=== PATIENT | female | born 1955 | race Caucasian/White ===

== ENCOUNTER 2018-03-11 19:16 | Observation (INO) | payer OTHER ==
[2018-03-11] MEDS ORDERED: Albuterol/Ipratropium 3.0-0.5 MG/3 ML Neb Soln NEB ONE (19:32)
[2018-03-11 20:08] LABS: CHLORIDE,CL 103 mmol/L (101-111); SODIUM,NA 138 mmol/L (135-145)
--- NOTE | 2018-03-11 21:23 | EDM.PDOC ---
ED HPI GENERAL MEDICAL PROBLEM - General Chief Complaint: Respiratory Problem Stated Complaint: SICK [id number] Time Seen by Provider: 03/11/18 19:40 Source of Information: Reports: Patient History Limitations: Reports: No Limitations - History of Present Illness INITIAL COMMENTS - FREE TEXT/NARRATIVE: ED with c/o of severe cough since december. Has had two courses of antibiotics and steroids, last finished steroids on Tuesday. Some improvement initially with steroids. Cough more productive that prior, yellow phlegm, Coughing to point of throwing up. This afternoon, coughing episode, , shortly after, dizzy and past out, emesis when came to, felt slightly better, laid down for nap and slept few hours then family suggested to go to ED. Pain across back with coughing. Pressure at times in ears with coughing. Original onset of sx primarily cough, no fever ore chill. No travel at onset. Recent travel to [place] but sx present and on second steroid course prior to travel. Relays hx of 2nd hand smoke for 32 years then period not being around it. Since November is again exposed . Upper Back Pain Score (Numeric/FACES): 6 - Related Data Allergies Allergy/AdvReac Type Severity Reaction Status Date / Time No Known Allergies Allergy Verified 03/11/18 19:33 Home Meds: Home Meds DULoxetine [Cymbalta] 60 mg PO DAILY 06/07/15 [History] Albuterol [Proventil HFA] 2 inhalation INH BID 03/11/18 [History] Calcium Citrate/Vitamin D3 [Calcium Citrate - Vit D3 Tab] 1 tab PO DAILY [History] Cetirizine HCl [Zyrtec] 10 mg PO DAILY 03/11/18 [History] Cyanocobalamin (Vitamin B-12) [Vitamin B-12] 500 mcg PO DAILY 03/11/18 [History] Dextromethorphan/guaiFENesin [Mucinex DM ER 600-30 MG] 1 tab PO BID 03/11/18 [ History] Ferrous Sulfate [High Potency Iron] 65 mg PO DAILY 03/11/18 [History] Magnesium 500 mg PO DAILY 03/11/18 [History] Multivitamin [Multivitamins] 1 cap PO DAILY 03/11/18 [History] Non-Formulary Medication [NF Drug] 1 tsp PO DAILY 03/11/18 [History] guaiFENesin/Dextromethorphan [Delsym Cough+Chest Cngst Dm Lq] 10 ml PO BID 03/11 [History] Past Medical History Other Gastrointestinal History: gastric bypass Other Genitourinary History: bladder repair Musculoskeletal History: Reports: Osteoarthritis Other Musculoskeletal History: OA in knees, hip, hands Social & Family History - Tobacco Use Smoking Status *Q: Never Smoker Second Hand Smoke Exposure: Yes - Recreational Drug Use Recreational Drug Use: No ED ROS GENERAL - Review of Systems Review Of Systems: See Below Constitutional: Reports: Malaise HEENT: Reports: No Symptoms Respiratory: Reports: Shortness of Breath, Wheezing, Cough, Sputum Cardiovascular: Reports: No Symptoms GI/Abdominal: Reports: Vomiting (with coughing) Musculoskeletal: Reports: Muscle Pain (across back from cough) Skin: Reports: No Symptoms Neurological: Reports: Syncope ED EXAM, GENERAL - Physical Exam Exam: See Below Exam Limited By: No Limitations General Appearance: Alert, Moderate Distress Eye Exam: Bilateral Eye: EOMI, PERRL Ears: Normal External Exam Nose: Normal Inspection Throat/Mouth: Normal Inspection Head: Atraumatic, Normocephalic Respiratory/Chest: No Respiratory Distress, Rales (bases), Wheezing, Other ( harsh loose bronchial cough) Cardiovascular: Normal Peripheral Pulses, Regular Rate, Rhythm GI/Abdominal: Normal Bowel Sounds, Soft Back Exam: Normal Inspection Extremities: Normal Inspection, Normal Range of Motion. No: Pedal Edema Neurological: Alert, Oriented, Normal Cognition Psychiatric: Normal Affect, Normal Mood Skin Exam: Warm, Dry, Intact, Normal Color Course - Vital Signs Last Recorded V/S: Last Vital Signs Temp 98.2 F 03/12/18 01:26 Pulse 76 03/12/18 01:26 Resp 18 03/12/18 01:26 BP 113/63 03/12/18 01:26 Pulse Ox 93 L 03/12/18 01:26 - Orders/Labs/Meds Orders: Active Orders 24 hr Category Date Time Status RT Aerosol Therapy [RC] ASDIRECTED Care 03/11/18 19:33 Active CULTURE BLOOD [BC] Stat Lab 03/11/18 19:40 Results CULTURE BLOOD [BC] Stat Lab 03/11/18 21:50 Results Blood Culture x2 Reflex Set [OM.PC] Stat Oth 03/11/18 21:43 Ordered Medication Orders Albuterol (Proventil Neb Soln) 2.5 mg NEB Q2H PRN PRN Reason: shortness of breath/wheezing Albuterol/Ipratropium (Duoneb 3.0-0.5 Mg/3 Ml) 3 ml NEB Q6HRRT [facility] Last Admin: 03/12/18 01:21 Dose: 3 ml Calcium Carbonate (Calcium Carbonate/Vitamin D 1250 Mg-200 Unit) 1 tab PO DAILY [facility] Last Admin: 03/12/18 01:16 Dose: 1 tab Cyanocobalamin (Vitamin B12) 500 mcg PO DAILY [facility] Duloxetine HCl (Cymbalta) 60 mg PO DAILY [facility] Enoxaparin Sodium (Lovenox) 40 mg SUBCUT DAILY [facility] Ferrous Sulfate (Ferrous Sulfate) 325 mg PO DAILY [facility] Guaifenesin/Phenylephrine HCl (Robitussin Dm) 10 ml PO QID PRN PRN Reason: Cough Sodium Chloride (Normal Saline) 1,000 mls @ 125 mls/hr IV ASDIRECTED [facility] Last Admin: 03/12/18 01:17 Dose: 125 mls/hr Magnesium Oxide (Magnesium Oxide) 500 mg PO DAILY [facility] Multivitamins (Thera) 1 each PO DAILY [facility] Non-Formulary Medication (Dextromethorphan/Guaifenesin [Mucinex Dm Er 600-30 Mg] ) 1 tab PO BID [facility] Sodium Chloride (Saline Flush) 10 ml FLUSH ASDIRECTED PRN PRN Reason: Keep Vein Open Labs: Laboratory Tests 03/11/18 03/11/18 03/11/18 Range/Units 19:40 19:40 19:40 WBC 13.8 H (5.0-10.0) 10^3/uL RBC 4.65 (4.2-5.4) 10^6/uL Hgb 14.7 (12.0-16.0) g/dL Hct 44.1 (37.0-47.0) % MCV 94.8 (80-100) fL MCH 31.6 (27.0-34.0) pg MCHC 33.3 (33.0-35.0) g/dL Plt Count 264 (150-450) 10^3/uL Neut % (Auto) 74.1 (42.2-75.2) % Lymph % (Auto) 13.7 L (20.5-50.1) % [place] % (Auto) 11.1 H (2-8) % Eos % (Auto) 0.8 L (1.0-3.0) % Baso % (Auto) 0.3 (0.0-1.0) % PT (9.0-12.0) SEC INR (0.9-1.2) D-Dimer, Quantitative (0-400) ng/mL Sodium 138 (135-145) mmol/L Potassium 3.6 (3.6-5.0) mmol/L Chloride 103 (101-111) mmol/L Carbon Dioxide 26.0 (21.0-31.0) mmol/L Anion Gap 12.6 BUN 11 (7-18) mg/dL Creatinine 0.9 (0.6-1.3) mg/dL Est Cr Clr Drug Dosing 58.32 mL/min Estimated GFR (MDRD) > 60 BUN/Creatinine Ratio 12.22 Glucose 76 (74-105) mg/dL Lactic Acid 1.3 (0.5-2.2) mmol/L Calcium 9.1 (8.4-10.2) mg/dl Total Bilirubin 0.5 (0.2-1.0) mg/dL AST 26 (10-42) IU/L ALT 23 (10-60) IU/L Alkaline Phosphatase 103 (42-121) IU/L Troponin I < 0.02 (0.00-0.02) ng/ml B-Natriuretic Peptide 12 (0-100) pg/ml Total Protein 7.7 (6.7-8.2) g/dl Albumin 4.2 (3.2-5.5) g/dl Globulin 3.5 Albumin/Globulin Ratio 1.20 /11/27 Range/Units 19:40 WBC (5.0-10.0) 10^3/uL RBC (4.2-5.4) 10^6/uL Hgb (12.0-16.0) g/dL Hct (37.0-47.0) % MCV (80-100) fL MCH (27.0-34.0) pg MCHC (33.0-35.0) g/dL Plt Count (150-450) 10^3/uL Neut % (Auto) (42.2-75.2) % Lymph % (Auto) (20.5-50.1) % [place] % (Auto) (2-8) % Eos % (Auto) (1.0-3.0) % Baso % (Auto) (0.0-1.0) % PT 9.0 (9.0-12.0) SEC INR 0.9 (0.9-1.2) D-Dimer, Quantitative 108 (0-400) ng/mL Sodium (135-145) mmol/L Potassium (3.6-5.0) mmol/L Chloride (101-111) mmol/L Carbon Dioxide (21.0-31.0) mmol/L Anion Gap BUN (7-18) mg/dL Creatinine (0.6-1.3) mg/dL Est Cr Clr Drug Dosing mL/min Estimated GFR (MDRD) BUN/Creatinine Ratio Glucose (74-105) mg/dL Lactic Acid (0.5-2.2) mmol/L Calcium (8.4-10.2) mg/dl Total Bilirubin (0.2-1.0) mg/dL AST (10-42) IU/L ALT (10-60) IU/L Alkaline Phosphatase (42-121) IU/L Troponin I (0.00-0.02) ng/ml B-Natriuretic Peptide (0-100) pg/ml Total Protein (6.7-8.2) g/dl Albumin (3.2-5.5) g/dl Globulin Albumin/Globulin Ratio Meds: Medications Generic Name Dose Route Start Last Admin Trade Name Freq PRN Reason Stop Dose Admin Albuterol 2.5 mg 03/12/18 00:13 Proventil Neb Soln NEB Q2H PRN shortness of breath/wheezing Albuterol/Ipratropium 3 ml 03/12/18 01:00 03/12/18 01:21 Duoneb 3.0-0.5 Mg/3 Ml NEB 3 ml Q6HRRT [facility] Administration Calcium Carbonate 1 tab 03/12/18 00:45 03/12/18 01:16 Calcium Carbonate/Vitamin D 1250 Mg-200 Unit PO 1 tab DAILY [facility] Administration Cyanocobalamin 500 mcg 03/12/18 09:00 Vitamin B12 PO DAILY [facility] Duloxetine HCl 60 mg 03/12/18 09:00 Cymbalta PO DAILY [facility] Enoxaparin Sodium 40 mg 03/12/18 09:00 Lovenox SUBCUT DAILY [facility] Ferrous Sulfate 325 mg 03/12/18 09:00 Ferrous Sulfate PO DAILY [facility] Guaifenesin/Phenylephrine HCl 10 ml 03/12/18 00:37 Robitussin Dm PO QID PRN Cough Sodium Chloride 1,000 mls @ 125 mls/hr 03/12/18 00:15 03/12/18 01:17 Normal Saline IV 125 mls/hr ASDIRECTED [facility] Administration Magnesium Oxide 500 mg 03/12/18 09:00 Magnesium Oxide PO DAILY [facility] Multivitamins 1 each 03/12/18 09:00 Thera PO DAILY [facility] Non-Formulary Medication 1 tab 03/12/18 09:00 Dextromethorphan/Guaifenesin [Mucinex Dm Er 600-30 Mg] PO BID [facility] Sodium Chloride 10 ml 03/12/18 00:13 Saline Flush FLUSH ASDIRECTED PRN Keep Vein Open Discontinued Medications Generic Name Dose Route Start Last Admin Trade Name Freq PRN Reason Stop Dose Admin Albuterol/Ipratropium 3 ml 03/11/18 19:32 03/11/18 19:38 Duoneb 3.0-0.5 Mg/3 Ml NEB 03/11/18 19:33 3 ml ONETIME ONE Administration Benzonatate 200 mg 03/11/18 21:43 03/11/18 22:04 Tessalon Perles PO 03/11/18 21:44 200 mg ONETIME ONE Administration Levofloxacin/Dextrose 500 mg/ 100 mls @ 100 mls/hr 03/11/18 21:43 03/11/18 22 :05 Premix IV 03/11/18 22:42 100 mls/hr ONETIME ONE Administration Iopamidol 100 ml 03/12/18 00:29 03/12/18 00:44 Isovue-370 (76%) IVPUSH 03/12/18 00:37 Not Given ONETIME ONE Iopamidol 75 ml 03/12/18 00:38 03/12/18 00:44 Isovue-300 (61%) IVPUSH 03/12/18 00:39 75 ml ONETIME ONE Administration Methylprednisolone Sodium Succinate 250 mg 03/11/18 21:43 03/12/18 00:45 Solu-Medrol IVPUSH 03/11/18 21:44 Not Given ONETIME ONE Methylprednisolone Sodium Succinate 125 mg 03/11/18 22:04 03/11/18 22:09 Solu-Medrol IVPUSH 03/11/18 22:05 125 mg ONETIME ONE Administration Potassium Chloride 40 meq 03/12/18 00:18 03/12/18 01:16 Klor-Con 10 PO 03/12/18 00:19 40 meq ONETIME ONE Administration - Radiology Interpretation Free Text/Narrative:: CXR early patchy infiltrates right greater than left - Re-Assessments/Exams Free Text/Narrative Re-Assessment/Exam: 03/11/18 22:00 Mild improvement post neb for brief period. Dr Eugenio MORTON, accepting of patient for further management. Departure - Departure Time of Disposition: 22:01 Disposition: Refer to Observation Condition: Good Clinical Impression: Pneumonia Qualifiers: Pneumonia type: due to unspecified organism Laterality: bilateral Lung location : lower lobe of lung Qualified Code(s): J18.1 - Lobar pneumonia, unspecified organism Syncopal episodes Qualifiers: Syncope type: unspecified Qualified Code(s): R55 - Syncope and collapse - Discharge Information - My Orders Last 24 Hours: My Active Orders 03/11/18 19:33 RT Aerosol Therapy [RC] ASDIRECTED 03/11/18 19:40 CULTURE BLOOD [BC] Stat 03/11/18 21:43 Blood Culture x2 Reflex Set [OM.PC] Stat 03/11/18 21:50 CULTURE BLOOD [BC] Stat - Assessment/Plan Last 24 Hours: My Active Orders 03/11/18 19:33 RT Aerosol Therapy [RC] ASDIRECTED 03/11/18 19:40 CULTURE BLOOD [BC] Stat 03/11/18 21:43 Blood Culture x2 Reflex Set [OM.PC] Stat 03/11/18 21:50 CULTURE BLOOD [BC] Stat
[2018-03-11] MEDS ORDERED: methylPREDNISolone Sodium Succinate 500 MG/4 ML SDV IVPUSH ONE (21:43)
[2018-03-11] MEDS ORDERED: Levofloxacin/Dextrose 5%-Water 500 MG in Premix Bag 1 BAG IV ONE (21:43)
[2018-03-11] MEDS ORDERED: Benzonatate 100 MG Cap PO ONE (21:43)
[2018-03-11] MEDS ORDERED: methylPREDNISolone Sodium Succinate 125 MG/2 ML SDV IVPUSH ONE (22:04)
[2018-03-12] MEDS ORDERED: Sodium Chloride 0.9% 10 ML Syringe FLUSH PRN (00:13)
[2018-03-12] MEDS ORDERED: Albuterol 0.083% 2.5 MG/3 ML Neb Soln NEB PRN (00:13)
[2018-03-12] MEDS ORDERED: Potassium Chloride 10 MEQ Tab.ER PO ONE (00:18)
--- NOTE | 2018-03-12 00:25 | PCM.HP ---
H&P History of Present Illness - General Date of Service: 03/12/18 Admit Problem/Dx: Admission Diagnosis/Problem Admission Diagnosis/Problem Chronic cough Source of Information: Patient History Limitations: Reports: No Limitations - History of Present Illness Initial Comments - Free Text/Narative: 63 yo F with PMH of anxiety disorder/depression, osteoarthritis, obesity s/p gastric bypass, who comes to the ED with cough and post-tussive syncope. Cough has been ongoing for 2 months. Cough is productive of yellowish sputum. There is no fever, no hemoptysis, no orthopnea, no PND, no chest pain, no palpitations. She was seen in the clinic in January and was given antibiotics. Cough continued after antibiotic treatment. She was then given steroid treatments and cough improved. In the ED, she received nebulizer treatments and this also improved her cough spell. She had an episode of post-tussive syncope today which prompted her to come to the ED. She has no recent history of travel outside the country, no history of working with [place] population or homeless people, no history of contact with persons with chronic cough, no history of exploring caves. SH: Does not have a history of smoking, but has had significant exposure to second hand smoke from her . Associated Symptoms: Reports: Cough Upper Back Pain Score (Numeric/FACES): 6 - Related Data Allergies/Adverse Reactions: Allergies Allergy/AdvReac Type Severity Reaction Status Date / Time No Known Allergies Allergy Verified 03/11/18 19:33 Home Medications: Home Meds DULoxetine [Cymbalta] 60 mg PO DAILY 06/07/15 [History] Albuterol [Proventil HFA] 2 inhalation INH BID 03/11/18 [History] Calcium Citrate/Vitamin D3 [Calcium Citrate - Vit D3 Tab] 1 tab PO DAILY [History] Cetirizine HCl [Zyrtec] 10 mg PO DAILY 03/11/18 [History] Cyanocobalamin (Vitamin B-12) [Vitamin B-12] 500 mcg PO DAILY 03/11/18 [History] Dextromethorphan/guaiFENesin [Mucinex DM ER 600-30 MG] 1 tab PO BID 03/11/18 [ History] Ferrous Sulfate [High Potency Iron] 65 mg PO DAILY 03/11/18 [History] Magnesium 500 mg PO DAILY 03/11/18 [History] Multivitamin [Multivitamins] 1 cap PO DAILY 03/11/18 [History] Non-Formulary Medication [NF Drug] 1 tsp PO DAILY 03/11/18 [History] guaiFENesin/Dextromethorphan [Delsym Cough+Chest Cngst Dm Lq] 10 ml PO BID 03/11 [History] Past Medical History HEENT History: Reports: Other (See Below) Other HEENT History: wear glasses for reading Respiratory History: Reports: Pneumonia, Recurrent Gastrointestinal History: Reports: Other (See Below) Other Gastrointestinal History: gastric bypass Other Genitourinary History: bladder repair [employer] History: Reports: Other OB/BYN History: x2 Musculoskeletal History: Reports: Osteoarthritis Other Musculoskeletal History: OA in knees, hip, hands - Infectious Disease History Infectious Disease History: Reports: Chicken Pox, Measles, Mumps - Past Surgical History GI Surgical History: Reports: Appendectomy, Cholecystectomy Female Surgical History: Reports: Hysterectomy, Other (See Below) Other Female Surgeries/Procedures: bladder repair in 1999 Social & Family History - Family History Respiratory: Reports: COPD Other Respiratory Family Hisory: mother Endocrine/Metabolic: Reports: Diabetes, type II Other Endocrine/Metabolic Family History: sisters - Tobacco Use Smoking Status *Q: Never Smoker Second Hand Smoke Exposure: Yes - Caffeine Use Caffeine Use: Reports: Coffee - Alcohol Use Days Per Week of Alcohol Use: 2 Number of Drinks Per Day: 1 Total Drinks Per Week: 2 - Recreational Drug Use Recreational Drug Use: No H&P Review of Systems - Review of Systems: Review Of Systems: See Below General: Denies: Fever, Chills, Weight Loss HEENT: Reports: No Symptoms Pulmonary: Reports: Cough, Sputum. Denies: Hemoptysis Cardiovascular: Reports: No Symptoms Gastrointestinal: Reports: No Symptoms Genitourinary: Reports: No Symptoms Musculoskeletal: Reports: No Symptoms Skin: Reports: No Symptoms Exam - Exam Exam: See Below - Vital Signs Vital Signs: Last Vital Signs Temp 37.1 C 03/11/18 21:56 Pulse 85 03/11/18 21:56 Resp 18 03/11/18 21:56 BP 123/68 03/11/18 21:56 Pulse Ox 98 03/11/18 21:56 Weight: 83.642 kg - Exam General: Alert, Oriented HEENT: Conjunctiva Clear Neck: Supple Lungs: Clear to Auscultation Cardiovascular: Regular Rate, Regular Rhythm GI/Abdominal Exam: Normal Bowel Sounds - Patient Data Lab Results Last 24 hrs: Laboratory Results - last 24 hr 03/11/18 03/11/18 03/11/18 Range/Units 19:40 19:40 19:40 WBC 13.8 H (5.0-10.0) 10^3/uL RBC 4.65 (4.2-5.4) 10^6/uL Hgb 14.7 (12.0-16.0) g/dL Hct 44.1 (37.0-47.0) % MCV 94.8 (80-100) fL MCH 31.6 (27.0-34.0) pg MCHC 33.3 (33.0-35.0) g/dL Plt Count 264 (150-450) 10^3/uL Neut % (Auto) 74.1 (42.2-75.2) % Lymph % (Auto) 13.7 L (20.5-50.1) % [place] % (Auto) 11.1 H (2-8) % Eos % (Auto) 0.8 L (1.0-3.0) % Baso % (Auto) 0.3 (0.0-1.0) % PT (9.0-12.0) SEC INR (0.9-1.2) D-Dimer, Quantitative (0-400) ng/mL Sodium 138 (135-145) mmol/L Potassium 3.6 (3.6-5.0) mmol/L Chloride 103 (101-111) mmol/L Carbon Dioxide 26.0 (21.0-31.0) mmol/L Anion Gap 12.6 BUN 11 (7-18) mg/dL Creatinine 0.9 (0.6-1.3) mg/dL Est Cr Clr Drug Dosing 58.32 mL/min Estimated GFR (MDRD) > 60 BUN/Creatinine Ratio 12.22 Glucose 76 (74-105) mg/dL Lactic Acid 1.3 (0.5-2.2) mmol/L Calcium 9.1 (8.4-10.2) mg/dl Total Bilirubin 0.5 (0.2-1.0) mg/dL AST 26 (10-42) IU/L ALT 23 (10-60) IU/L Alkaline Phosphatase 103 (42-121) IU/L Troponin I < 0.02 (0.00-0.02) ng/ml B-Natriuretic Peptide 12 (0-100) pg/ml Total Protein 7.7 (6.7-8.2) g/dl Albumin 4.2 (3.2-5.5) g/dl Globulin 3.5 Albumin/Globulin Ratio 1.20 03/11/18 Range/Units 19:40 WBC (5.0-10.0) 10^3/uL RBC (4.2-5.4) 10^6/uL Hgb (12.0-16.0) g/dL Hct (37.0-47.0) % MCV (80-100) fL MCH (27.0-34.0) pg MCHC (33.0-35.0) g/dL Plt Count (150-450) 10^3/uL Neut % (Auto) (42.2-75.2) % Lymph % (Auto) (20.5-50.1) % [place] % (Auto) (2-8) % Eos % (Auto) (1.0-3.0) % Baso % (Auto) (0.0-1.0) % PT 9.0 (9.0-12.0) SEC INR 0.9 (0.9-1.2) D-Dimer, Quantitative 108 (0-400) ng/mL Sodium (135-145) mmol/L Potassium (3.6-5.0) mmol/L Chloride (101-111) mmol/L Carbon Dioxide (21.0-31.0) mmol/L Anion Gap BUN (7-18) mg/dL Creatinine (0.6-1.3) mg/dL Est Cr Clr Drug Dosing mL/min Estimated GFR (MDRD) BUN/Creatinine Ratio Glucose (74-105) mg/dL Lactic Acid (0.5-2.2) mmol/L Calcium (8.4-10.2) mg/dl Total Bilirubin (0.2-1.0) mg/dL AST (10-42) IU/L ALT (10-60) IU/L Alkaline Phosphatase (42-121) IU/L Troponin I (0.00-0.02) ng/ml B-Natriuretic Peptide (0-100) pg/ml Total Protein (6.7-8.2) g/dl Albumin (3.2-5.5) g/dl Globulin Albumin/Globulin Ratio Result Diagrams: 03/11/18 19:40 03/11/18 19:40 Akshat Results Last 24 hrs: Microbiology 03/11/18 19:40 Anaerobic Blood Culture - Final Blood - Venous 03/11/18 21:50 Anaerobic Blood Culture - Final Blood - Venous - Lab Draw Problem List Initiated/Reviewed/Updated: Yes Orders Last 24hrs: Active Orders 24 hr Category Date Time Status Patient Status [ADT] Routine ADT 03/12/18 00:13 Active Ambulate [RC] ASDIRECTED Care 03/12/18 00:13 Active Oxygen Therapy [RC] PRN Care 03/12/18 00:13 Active Peripheral IV Care [RC] . DIRECTED Care 03/12/18 00:15 Active RT Aerosol Therapy [RC] ASDIRECTED Care 03/11/18 19:33 Active RT Aerosol Therapy [RC] ASDIRECTED Care 03/12/18 00:16 Active Up ad Jessie [RC] ASDIRECTED Care 03/12/18 00:13 Active VTE/DVT Education [RC] PER UNIT ROUTINE Care 03/12/18 00:13 Active Vital Signs [RC] Q4H Care 03/12/18 00:13 Active Regular Diet [DIET] Diet 03/12/18 Breakfast Active Chest w Cont [CT] Stat Exams 03/12/18 00:11 Ordered BASIC METABOLIC PANEL,BMP [CHEM] AM Lab 03/12/18 05:11 Ordered CBC WITH AUTO DIFF [HEME] AM Lab 03/12/18 05:11 Ordered CULTURE BLOOD [BC] Stat Lab 03/11/18 19:40 Results CULTURE BLOOD [BC] Stat Lab 03/11/18 21:50 Results Albuterol [Proventil Neb Soln] Med 03/12/18 00:13 Ordered 2.5 mg NEB Q2H PRN Albuterol/Ipratropium [DuoNeb 3.0-0.5 MG/3 ML] Med 03/12/18 01:00 Ordered 3 ml NEB Q6HRRT Calcium Citrate/Vitamin D3 [Calcium Citrate - Vit D3 Med 03/12/18 09:00 Ordered Tab] 1 tab PO DAILY Cyanocobalamin (Vitamin B-12) [Vitamin B-12] Med 03/12/18 09:00 Ordered 500 mcg PO DAILY DULoxetine [Cymbalta] Med 03/12/18 09:00 Ordered 60 mg PO DAILY Dextromethorphan/guaiFENesin [Mucinex DM ER 600-30 MG] Med 03/12/18 09:00 Ordered 1 tab PO BID Enoxaparin [Lovenox] Med 03/12/18 09:00 Ordered 40 mg SUBCUT DAILY Ferrous Sulfate [High Potency Iron] Med 03/12/18 09:00 Ordered 65 mg PO DAILY Magnesium [Magnesium] Med 03/12/18 09:00 Ordered 500 mg PO DAILY Multivitamin [Multivitamins] Med 03/12/18 09:00 Ordered 1 cap PO DAILY Potassium Chloride [Klor-Con 10] Med 03/12/18 00:18 Once 40 meq PO ONETIME ONE Sodium Chloride 0.9% [Normal Saline] 1,000 ml Med 03/12/18 00:15 Ordered IV ASDIRECTED Sodium Chloride 0.9% [Saline Flush] Med 03/12/18 00:13 Ordered 10 ml FLUSH ASDIRECTED PRN guaiFENesin/Dextromethorphan [Delsym Cough+Chest Cngst Med 03/12/18 00:16 Ordered Dm Lq] 10 ml PO QID PRN Blood Culture x2 Reflex Set [OM.PC] Stat Oth 03/11/18 21:43 Ordered Peripheral IV Insertion Adult [OM.PC] Routine Oth 03/12/18 00:13 Ordered Saline Lock Insert [OM.PC] Routine Oth 03/12/18 00:13 Ordered Resuscitation Status Routine Resus Stat 03/12/18 00:13 Ordered Medication Orders Albuterol (Proventil Neb Soln) 2.5 mg NEB Q2H PRN PRN Reason: shortness of breath/wheezing Albuterol/Ipratropium (Duoneb 3.0-0.5 Mg/3 Ml) 3 ml NEB Q6HRRT [facility] Enoxaparin Sodium (Lovenox) 40 mg SUBCUT DAILY [facility] Sodium Chloride (Normal Saline) 1,000 mls @ 125 mls/hr IV ASDIRECTED [facility] Non-Formulary Medication (Calcium Citrate/Vitamin D3 [Calcium Citrate - Vit D3 Tab]) 1 tab PO DAILY [facility] Non-Formulary Medication (Cyanocobalamin (Vitamin B-12) [Vitamin B-12]) 500 mcg PO DAILY [facility] Non-Formulary Medication (Dextromethorphan/Guaifenesin [Mucinex Dm Er 600-30 Mg] ) 1 tab PO BID [facility] Non-Formulary Medication (Duloxetine [Cymbalta]) 60 mg PO DAILY [facility] Non-Formulary Medication (Ferrous Sulfate [High Potency Iron]) 65 mg PO DAILY [facility] Non-Formulary Medication (Guaifenesin/Dextromethorphan [Delsym Cough+Chest Cngst Dm Lq]) 10 ml PO QID PRN PRN Reason: Cough Non-Formulary Medication (Magnesium [Magnesium]) 500 mg PO DAILY [facility] Non-Formulary Medication (Multivitamin [Multivitamins]) 1 cap PO DAILY [facility] Potassium Chloride (Klor-Con 10) 40 meq PO ONETIME ONE Stop: 03/12/18 00:19 Sodium Chloride (Saline Flush) 10 ml FLUSH ASDIRECTED PRN PRN Reason: Keep Vein Open Assessment/Plan Comment:: 63 yo F who presents with chronic cough. #Chronic cough Etiology of cough is unlikely infection: Afebrile, elevated white blood cell count is likely due to previous steroid use, has had previous treatment with antibiotics Possible etiology is COPD vs reactive airway disease: Has had good response to DuoNeb and steroids, history of exposure to secondhand smoke We'll treat with DuoNeb's scheduled and when necessary We'll check a CT scan of the chest When necessary cough suppressant #Hypokalemia Mild, replenish potassium orally #DVT prophylaxis Lovenox subcutaneous.
[2018-03-12] MEDS ORDERED: Iopamidol 755 Mg/ML 100 ML Bottle IVPUSH ONE (00:29)
[2018-03-12] MEDS ORDERED: guaiFENesin/Dextromethorphan 100-10 MG/5 ML Soln 5 ML Cup PO PRN (00:37)
[2018-03-12] MEDS ORDERED: Iopamidol 612 MG/ML 75 ML Bottle IVPUSH ONE (00:38)
[2018-03-12] MEDS: Calcium Carbonate/Vitamin D3 1250 MG-200 Unit Tab PO SCH ×2 (01:16→08:32)
[2018-03-12] MEDS: Sodium Chloride 0.9% 1,000 ML IV SCH ×2 (01:17→09:17)
[2018-03-12] MEDS: Albuterol/Ipratropium 3.0-0.5 MG/3 ML Neb Soln NEB SCH ×2 (01:21→07:08)
[2018-03-12 06:51] LABS: CHLORIDE,CL 107 mmol/L (101-111); SODIUM,NA 138 mmol/L (135-145)
[2018-03-12 07:57] VITALS: BP 114/63
[2018-03-12] MEDS ORDERED: Ferrous Sulfate 325 MG Tab PO SCH (09:00)
[2018-03-12] MEDS ORDERED: Cyanocobalamin (Vitamin B12) 100 MCG Tab PO SCH (09:00)
[2018-03-12] MEDS ORDERED: Multivitamins,Therapeutic Tab PO SCH (09:00)
[2018-03-12] MEDS ORDERED: DULoxetine 30 MG Cap PO SCH (09:00)
[2018-03-12] MEDS ORDERED: Enoxaparin 40 MG/0.4 ML Syringe SUBCUT SCH (09:00)
--- NOTE | 2018-03-12 10:28 | PCM.DCSUM1 ---
Discharge Summary - Hospital Course Free Text/Narrative:: 63 yo F with PMH of anxiety disorder/depression, osteoarthritis, obesity s/p gastric bypass, who comes to the ED with cough and post-tussive syncope. Cough has been ongoing for 2 months. Cough is productive of yellowish sputum. There is no fever, no hemoptysis, no orthopnea, no PND, no chest pain, no palpitations. She had a CT chest that shows bronchitis. She felt much better in the morning. Will discharge home to follow up with PCP OTC Tylenol and cough suppressants as needed. - Discharge Data Discharge Date: 03/12/18 Discharge Disposition: Home, Self-Care 01 Condition: Good - Patient Instructions Diet: Regular Diet as Tolerated Activity: Full Weight Bearing Driving: May Drive Today Showering/Bathing: May Shower - Discharge Plan Home Medications: Home Meds DULoxetine [Cymbalta] 60 mg PO DAILY 06/07/15 [History] Albuterol [Proventil HFA] 2 inhalation INH BID 03/11/18 [History] Calcium Citrate/Vitamin D3 [Calcium Citrate - Vit D3 Tab] 1 tab PO DAILY [History] Cetirizine HCl [Zyrtec] 10 mg PO DAILY 03/11/18 [History] Cyanocobalamin (Vitamin B-12) [Vitamin B-12] 500 mcg PO DAILY 03/11/18 [History] Dextromethorphan/guaiFENesin [Mucinex DM ER 600-30 MG] 1 tab PO BID 03/11/18 [ History] Ferrous Sulfate [High Potency Iron] 65 mg PO DAILY 03/11/18 [History] Magnesium 500 mg PO DAILY 03/11/18 [History] Multivitamin [Multivitamins] 1 cap PO DAILY 03/11/18 [History] Non-Formulary Medication [NF Drug] 1 tsp PO DAILY 03/11/18 [History] guaiFENesin/Dextromethorphan [Delsym Cough+Chest Cngst Dm Lq] 10 ml PO BID 03/11 [History] Forms: ED Department Discharge Referrals: Jessica Shafer MD [Primary Care Provider] - - General Info Date of Service: 03/12/18 Admission Dx/Problem (Free Text: Admission Diagnosis/Problem Admission Diagnosis/Problem Chronic cough - Review of Systems Pulmonary: Reports: Cough Cardiovascular: Reports: No Symptoms Gastrointestinal: Reports: No Symptoms Genitourinary: Reports: No Symptoms - Patient Data Vitals - Most Recent: Last Vital Signs Temp 36.6 C 03/12/18 07:57 Pulse 81 03/12/18 07:57 Resp 16 03/12/18 07:57 BP 114/63 03/12/18 07:57 Pulse Ox 94 L 03/12/18 07:57 Weight - Most Recent: 83.642 kg I&O - Last 24 hours: Intake & Output 03/11/18 03/12/18 03/12/18 22:59 06:59 14:59 Intake Total 486 1050 Output Total 25 1400 250 Balance -25 -914 800 Lab Results - Last 24 hrs: Laboratory Results - last 24 hr 03/11/18 03/11/18 03/11/18 Range/Units 19:40 19:40 19:40 WBC 13.8 H (5.0-10.0) 10^3/uL RBC 4.65 (4.2-5.4) 10^6/uL Hgb 14.7 (12.0-16.0) g/dL Hct 44.1 (37.0-47.0) % MCV 94.8 (80-100) fL MCH 31.6 (27.0-34.0) pg MCHC 33.3 (33.0-35.0) g/dL Plt Count 264 (150-450) 10^3/uL Neut % (Auto) 74.1 (42.2-75.2) % Lymph % (Auto) 13.7 L (20.5-50.1) % [place] % (Auto) 11.1 H (2-8) % Eos % (Auto) 0.8 L (1.0-3.0) % Baso % (Auto) 0.3 (0.0-1.0) % PT (9.0-12.0) SEC INR (0.9-1.2) D-Dimer, Quantitative (0-400) ng/mL Sodium 138 (135-145) mmol/L Potassium 3.6 (3.6-5.0) mmol/L Chloride 103 (101-111) mmol/L Carbon Dioxide 26.0 (21.0-31.0) mmol/L Anion Gap 12.6 BUN 11 (7-18) mg/dL Creatinine 0.9 (0.6-1.3) mg/dL Est Cr Clr Drug Dosing 58.32 mL/min Estimated GFR (MDRD) > 60 BUN/Creatinine Ratio 12.22 Glucose 76 (74-105) mg/dL Lactic Acid 1.3 (0.5-2.2) mmol/L Calcium 9.1 (8.4-10.2) mg/dl Total Bilirubin 0.5 (0.2-1.0) mg/dL AST 26 (10-42) IU/L ALT 23 (10-60) IU/L Alkaline Phosphatase 103 (42-121) IU/L Troponin I < 0.02 (0.00-0.02) ng/ml B-Natriuretic Peptide 12 (0-100) pg/ml Total Protein 7.7 (6.7-8.2) g/dl Albumin 4.2 (3.2-5.5) g/dl Globulin 3.5 Albumin/Globulin Ratio 1.20 03/11/18 03/12/18 03/12/18 Range/Units 19:40 05:40 05:40 WBC 9.9 (5.0-10.0) 10^3/uL RBC 4.47 (4.2-5.4) 10^6/uL Hgb 14.0 (12.0-16.0) g/dL Hct 42.4 (37.0-47.0) % MCV 94.9 (80-100) fL MCH 31.3 (27.0-34.0) pg MCHC 33.0 (33.0-35.0) g/dL Plt Count 247 (150-450) 10^3/uL Neut % (Auto) 92.0 H (42.2-75.2) % Lymph % (Auto) 7.0 L (20.5-50.1) % [place] % (Auto) 0.9 L (2-8) % Eos % (Auto) 0.0 L (1.0-3.0) % Baso % (Auto) 0.1 (0.0-1.0) % PT 9.0 (9.0-12.0) SEC INR 0.9 (0.9-1.2) D-Dimer, Quantitative 108 (0-400) ng/mL Sodium 138 (135-145) mmol/L Potassium 4.1 (3.6-5.0) mmol/L Chloride 107 (101-111) mmol/L Carbon Dioxide 23.0 (21.0-31.0) mmol/L Anion Gap 12.1 BUN 12 (7-18) mg/dL Creatinine 0.6 (0.6-1.3) mg/dL Est Cr Clr Drug Dosing 87.48 mL/min Estimated GFR (MDRD) > 60 BUN/Creatinine Ratio Glucose 181 H (74-105) mg/dL Lactic Acid (0.5-2.2) mmol/L Calcium 9.2 (8.4-10.2) mg/dl Total Bilirubin (0.2-1.0) mg/dL AST (10-42) IU/L ALT (10-60) IU/L Alkaline Phosphatase (42-121) IU/L Troponin I (0.00-0.02) ng/ml B-Natriuretic Peptide (0-100) pg/ml Total Protein (6.7-8.2) g/dl Albumin (3.2-5.5) g/dl Globulin Albumin/Globulin Ratio [place] Results - Last 24 hrs: Microbiology 03/11/18 19:40 Anaerobic Blood Culture - Final Blood - Venous 03/11/18 21:50 Anaerobic Blood Culture - Final Blood - Venous - Lab Draw Med Orders - Current: Current Medications Albuterol (Proventil Neb Soln) 2.5 mg NEB Q2H PRN PRN Reason: shortness of breath/wheezing Albuterol/Ipratropium (Duoneb 3.0-0.5 Mg/3 Ml) 3 ml NEB Q6HRRT [facility] Last Admin: 03/12/18 07:08 Dose: 3 ml Calcium Carbonate (Calcium Carbonate/Vitamin D 1250 Mg-200 Unit) 1 tab PO DAILY [facility] Last Admin: 03/12/18 08:32 Dose: 1 tab Cyanocobalamin (Vitamin B12) 500 mcg PO DAILY [facility] Last Admin: 03/12/18 08:32 Dose: 500 mcg Duloxetine HCl (Cymbalta) 60 mg PO DAILY [facility] Last Admin: 03/12/18 08:32 Dose: 60 mg Enoxaparin Sodium (Lovenox) 40 mg SUBCUT DAILY [facility] Last Admin: 03/12/18 08:35 Dose: Not Given Ferrous Sulfate (Ferrous Sulfate) 325 mg PO DAILY [facility] Last Admin: 03/12/18 08:32 Dose: 325 mg Guaifenesin/Phenylephrine HCl (Robitussin Dm) 10 ml PO QID PRN PRN Reason: Cough Last Admin: 03/12/18 08:41 Dose: 10 ml Sodium Chloride (Normal Saline) 1,000 mls @ 125 mls/hr IV ASDIRECTED [facility] Last Admin: 03/12/18 09:17 Dose: 125 mls/hr Magnesium Oxide (Magnesium Oxide) 500 mg PO DAILY [facility] Last Admin: 03/12/18 08:32 Dose: 500 mg Multivitamins (Thera) 1 each PO DAILY [facility] Last Admin: 03/12/18 08:32 Dose: 1 each Non-Formulary Medication (Dextromethorphan/Guaifenesin [Mucinex Dm Er 600-30 Mg] ) 1 tab PO BID [facility] Last Admin: 03/12/18 08:34 Dose: Not Given Sodium Chloride (Saline Flush) 10 ml FLUSH ASDIRECTED PRN PRN Reason: Keep Vein Open Discontinued Medications Albuterol/Ipratropium (Duoneb 3.0-0.5 Mg/3 Ml) 3 ml NEB ONETIME ONE Stop: 03/11/18 19:33 Last Admin: 03/11/18 19:38 Dose: 3 ml Benzonatate (Tessalon Perles) 200 mg PO ONETIME ONE Stop: 03/11/18 21:44 Last Admin: 03/11/18 22:04 Dose: 200 mg Levofloxacin/Dextrose 500 mg/ (Premix) 100 mls @ 100 mls/hr IV ONETIME ONE Stop: 03/11/18 22:42 Last Admin: 03/11/18 22:05 Dose: 100 mls/hr Iopamidol (Isovue-370 (76%)) 100 ml IVPUSH ONETIME ONE Stop: 03/12/18 00:37 Last Admin: 03/12/18 00:44 Dose: Not Given Iopamidol (Isovue-300 (61%)) 75 ml IVPUSH ONETIME ONE Stop: 03/12/18 00:39 Last Admin: 03/12/18 00:44 Dose: 75 ml Methylprednisolone Sodium Succinate (Solu-Medrol) 250 mg IVPUSH ONETIME ONE Stop: 03/11/18 21:44 Last Admin: 03/12/18 00:45 Dose: Not Given Methylprednisolone Sodium Succinate (Solu-Medrol) 125 mg IVPUSH ONETIME ONE Stop: 03/11/18 22:05 Last Admin: 03/11/18 22:09 Dose: 125 mg Potassium Chloride (Klor-Con 10) 40 meq PO ONETIME ONE Stop: 03/12/18 00:19 Last Admin: 03/12/18 01:16 Dose: 40 meq - Exam General: Reports: Alert, Oriented Lungs: Reports: Clear to Auscultation. Denies: Wheezing Cardiovascular: Reports: Regular Rate, Regular Rhythm GI/Abdominal Exam: Normal Bowel Sounds
== END 2018-03-12 10:57 | disposition home or self-care (01) ==
LOC: DL.ED 19:16 → DL.MS 21:55 → UNDOADMOB 21:55 → DL.MS 03-12 00:13
PROVIDERS: ADMIT Hospitalist; ATTEND Hospitalist
DX: J40 Bronchitis, not specified as acute or chronic (principal); E87.6 Hypokalemia; F41.9 Anxiety disorder, unspecified; F32.9 Major depressive disorder, single episode, unspecified; E66.9 Obesity, unspecified; M17.0 Bilateral primary osteoarthritis of knee; M16.10 Unilateral primary osteoarthritis, unspecified hip; M19.042 Primary osteoarthritis, left hand; M19.041 Primary osteoarthritis, right hand; Z98.84 Bariatric surgery status; Z79.899 Other long term (current) drug therapy; Z87.891 Personal history of nicotine dependence; Z87.01 Personal history of pneumonia (recurrent); Z90.49 Acquired absence of other specified parts of digestive tract; Z90.710 Acquired absence of both cervix and uterus
CPT/HCPCS: 36415; 71046; 71260; 80048; 80053; 83605; 83880; 84484; 85025; 85379; 85610; 87040; 93005; 94640; 96365; 96366; 96375; 99284; A9270; J1956; J2930; J7030; Q9967